=== PATIENT | female | born 1945 | race Caucasian/White ===

== ENCOUNTER → 2018-05-04 | Outpatient (CLI) | payer OTHER ==
[~2018-05-04] MED LIST: AMLO10 PO; AMLO5; ASPI81CH PO; Advil200 M1 PO; BENADRYL25 MG PO; CHOL10002 PO; CITA20 PO; COMBIVENT RESPIM4 GM IH; COMBIVENT RESPIM4 GM INH; EPIN.3I IM; FEXO60; FEXPSEER PO; FISH1000 PO; FLUT220OIA INH; HYDACE5 PO; Hydrochlorothia25 MG PO; ISOMON30 PO; LEVSOD100 PO; LEVSOD125 PO; LEVSOD25; METF500 PO; NAPR500; NEBI10; NEBI10 PO; NITR.6SL SL; OXYACE5T PO; PREG100 PO; PREG75 PO; Pepcid20 MG PO; Prednisone20 MG PO; RALO60; VALS80 PO
== END | disposition home or self-care (01) ==
LOC: LAB SHORT 08:08 → PLD 08:08
DX: L82.1 Other seborrheic keratosis (principal)
CPT/HCPCS: 88305

== ENCOUNTER 2022-02-20 08:44 | Day surgery (SDC) | payer OTHER ==
[~2022-02-20] VITALS: Ht 162.6 cm; Wt 100.7 kg
[~2022-02-20 08:44] MED LIST changes: +ATOR40TA PO; -CHOL10002 PO; +DULO60 PO; +GABA100 PO; +LEVSOD112 PO; -LEVSOD125 PO; +LIOT25 PO; +Norco 5-325 Ta1 EACH PO; +OLMESARTAN-HCT1 EAC5 PO; +OZEMPIC1 MG/0.72; +PROP120ER PO; +VITAMIN B125000 MC1 PO; +VITAMIN D3 PO
--- NOTE | 2022-02-20 12:17 | NUR ---
Ambulatory in Day Surgery. Surgical site prepped with 2% Chlorhexidine cloth wipe. History, Chart, Medications and Allergies reviewed before start of procedure. Lungs clear T/O to Auscultation. Patient confirms NPO status and agrees with scheduled surgery. Pre-Op teaching done. Pt verbalizes understanding. Patient States Post-Procedure ride home has been arranged. Patient reports completing Chlorhexadine shower X2 prior to admission to hospital.
--- NOTE | 2022-02-20 18:08 | NUR ---
DISCHARGED FROM STEP WITH ALL BELONGINGS AND DISCHARGE INSTRUCTIONS. WENT OVER DISCHARGE INSTRUCTIONS WITH PATIENT AND DAUGHTER ESTEFANIA ANSWERED ALL QUESTIONS. ESCORTED OUT IN WHEEL CHAIR WITH RN.
== END 2022-02-20 23:20 | disposition home or self-care (01) ==
LOC: ORSCMMR 08:44 → NM 09:30 → ORSCMMR 09:30
PROVIDERS: Surgery
PROC: 0HBT0ZZ Excision of Right Breast, Open Approach (ICD-10-PCS; principal; 2022-02-20 11:30)
PROC: 07B50ZX Excision of Right Axillary Lymphatic, Open Approach, Diagnostic (ICD-10-PCS; principal; 2022-02-20 11:30)
DX: C50.411 Malignant neoplasm of upper-outer quadrant of right female breast (principal); Z17.0 Estrogen receptor positive status [ER+]; D36.0 Benign neoplasm of lymph nodes; I10 Essential (primary) hypertension; E11.9 Type 2 diabetes mellitus without complications; E03.9 Hypothyroidism, unspecified; Z79.899 Other long term (current) drug therapy; Z79.82 Long term (current) use of aspirin; E66.9 Obesity, unspecified; Z68.38 Body mass index [BMI] 38.0-38.9, adult
CPT/HCPCS: 38792; 82947; 88307; 88341; 88342; A9270; A9520; J0690; J1100; J1885; J2250; J2270; J2405; J2704; J3010; J7120; Q9968

== ENCOUNTER 2022-03-01 07:04 | Day surgery (SDC) | payer OTHER ==
[~2022-03-01] VITALS: Ht 162.6 cm; Wt 101.3 kg
--- NOTE | 2022-03-01 07:46 | NUR ---
PT ADMITTED TO [facility]. AMBULATES WITH WALKER. LUNG SOUNDS CLEAR. AGREES WITH PLANNED SURGERY.
--- NOTE | 2022-03-01 08:18 | NUR ---
ASSUMED CARE, REPORT FROM CRISTAL BABIN.
--- NOTE | 2022-03-01 11:07 | NUR ---
Patient up to Ambulate independently. Gait steady WITH PERSONAL WALKER. Discharge instructions reviewed with patient AND DAUGHTER . Patient verbalizes understanding. Copy given to patient to take home. Discharged via wheelchair to private car for ride home. PERSONAL WALKER WITH PT AT DISCHARGE
== END 2022-03-01 11:03 | disposition home or self-care (01) ==
LOC: ORSCMMR 07:04 → ORD 08:30 → ORSCMMR 11:03
PROVIDERS: Surgery
PROC: 0HBT0ZZ Excision of Right Breast, Open Approach (ICD-10-PCS; principal; 2022-03-01 08:30)
DX: C50.411 Malignant neoplasm of upper-outer quadrant of right female breast (principal); Z17.0 Estrogen receptor positive status [ER+]; I10 Essential (primary) hypertension; E11.9 Type 2 diabetes mellitus without complications; E03.9 Hypothyroidism, unspecified; Z79.84 Long term (current) use of oral hypoglycemic drugs; Z79.899 Other long term (current) drug therapy; Z79.82 Long term (current) use of aspirin
CPT/HCPCS: 82947; 88305; J0690; J1100; J1885; J2250; J2405; J2704; J3010; J7120

== ENCOUNTER 2022-08-29 08:23 | Day surgery (SDC) | payer OTHER ==
[~2022-08-29] VITALS: Ht 162.6 cm; Wt 101.2 kg
[2022-08-29] MEDS ORDERED: OZEMPIC0.25 MG/0. (08:47)
[2022-08-29] MEDS ORDERED: ANASTROZOLE1 M7 PO (08:50)
[2022-08-29 10:18] LABS: Albumin, Blood 3.4 g/dL (3.4-5.0); Albumin/Globulin Ratio 0.8 (0.8-1.8); Bilirubin, Total 0.7 mg/dL (0.1-1.0); Bun/Creatinine Ratio 28.1 (12.0-20.0); Calcium, Blood 9.6 mg/dL (8.5-10.1); Creatinine, Blood 0.89 mg/dL (0.40-1.00); Globulin, Blood 4.2 g/dL (2.2-4.0); Potassium, Blood 3.9 mmol/L (3.5-5.5); Total Protein, Blood 7.6 g/dL (6.4-8.2)
--- NOTE | 2022-08-29 14:04 | NUR ---
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 TWO SMALLER PATCHES NOTED ON LEFT & RIGHT SIDE OF PANNUS, BOTH APPROX 2-3 INCHES IN DIAMETER. PT DENIES KNOWLEDGE OR CAUSE, DENIES ANY ITCHING OR DISCOMFORT. NOT RAISED OR WARM TO TOUCH. PT UP TO RESTROOM VIA W/C, 1 RN ASSIST TO CHAIR. PT C/O SLIGHT DIZZINESS, DOES NOT FEEL STABLE ON FEET. PT ASSISTED WITH TRANSFER FROM CHAIR TO TOILET & BACK. WHILE ON TOILET, TWO ROUND BRUISES NOTED TO RIGHT FLANK, APPROX 3-4 INCHES IN DIAMETER. PT DENIES KNOWLEDGE OF SAID BRUISES, BUT STATES SHE HAS HAD MULTIPLE FALLS IN THE LAST COUPLE WEEKS. BOTH BRUISES VARIOUS SHADES OF PURPLE, WITH SMALL OUTLINING OF GREEN. PT DENIES PAIN OR TENDERNESS. DAUGHTER STATES PT HAD AN UNWITNESSED FALL "A FEW DAYS AGO" AT A [employer]. 4 DRESSING SITES CLEAN, DRY & INTACT. PT AND DAUGHTER SHOWN & PROVIDED WITH DISCHARGE EDUCATION. PT'S DAUGHTER AT BEDSIDE, ASSISTING RN WITH DRESSING CHANGE. EDUCATED BOTH ON IMPORTANCE OF FALL PREVENTION, AND VARIOUS INTERVENTIONS. BOTH VERBALIZE UNDERSTANDING, AND STATE THEY ARE COMFORTABLE WITH DISCHARGING HOME. DAUGHTER CONFIRMS SHE AND BROTHER WILL BE ASSISTING PT AT HOME.
--- NOTE | 2022-08-29 14:36 | NUR ---
Discharge instructions reviewed with patient. Patient verbalizes understanding. Copy given to patient to take home. Discharged via wheelchair to private car for ride home. PT TRANSFERRED FROM WHEELCHAIR TO CAR WITH TWO PERSON ASSIST, THIS RN & [facility], WHO IS FAMILIAR WITH PT.
== END 2022-08-29 13:55 | disposition home or self-care (01) ==
LOC: ORSCMMR 08:23 → ORD 09:00 → ORSCMMR 09:00
PROVIDERS: Anesthesiology; Surgery
PROC: 0FT44ZZ Resection of Gallbladder, Percutaneous Endoscopic Approach (ICD-10-PCS; principal; 2022-08-29 09:30)
DX: K80.10 Calculus of gallbladder with chronic cholecystitis without obstruction (principal); I10 Essential (primary) hypertension; E11.9 Type 2 diabetes mellitus without complications; E78.00 Pure hypercholesterolemia, unspecified; Z79.899 Other long term (current) drug therapy; Z79.84 Long term (current) use of oral hypoglycemic drugs; E66.9 Obesity, unspecified; Z68.38 Body mass index [BMI] 38.0-38.9, adult
CPT/HCPCS: 80053; 82947; 88304; 93005; 93010; A9270; C1729; J0690; J1100; J1885; J2250; J2405; J2704; J2710; J2795; J3010; J7120

== ENCOUNTER → 2023-12-18 | Outpatient (CLI) | payer OTHER ==
[~2023-12-18] MED LIST changes: +ANASTROZOLE1 M7 PO; +OZEMPIC0.25 MG/0.
== END | disposition home or self-care (01) ==
LOC: LAB SHORT 17:09 → LAB 17:09
DX: E11.9 Type 2 diabetes mellitus without complications (principal); R30.0 Dysuria
CPT/HCPCS: 87086

== ENCOUNTER → 2024-03-23 | Outpatient (CLI) | payer OTHER | END | disposition home or self-care (01) | LOC: LAB SHORT 15:45 → LAB 15:45 | DX: E11.9 Type 2 diabetes mellitus without complications (principal); N39.0 Urinary tract infection, site not specified; R30.0 Dysuria | CPT/HCPCS: 87086 ==

== ENCOUNTER 2024-08-06 12:25 | Emergency (ER) | payer OTHER ==
[~2024-08-06] VITALS: Ht 162.6 cm; Wt 99.3 kg
[2024-08-06 12:50] VITALS: BP 140/73
== END 2024-08-06 14:43 | disposition home or self-care (01) ==
LOC: ER 12:25
DX: S02.2XXA Fracture of nasal bones, initial encounter for closed fracture (principal); S01.511A Laceration without foreign body of lip, initial encounter; W18.30XA Fall on same level, unspecified, initial encounter; Z88.8 Allergy status to other drugs, medicaments and biological substances; Z91.041 Radiographic dye allergy status; Z79.899 Other long term (current) drug therapy; Z79.84 Long term (current) use of oral hypoglycemic drugs; Z79.82 Long term (current) use of aspirin; E78.5 Hyperlipidemia, unspecified; E11.9 Type 2 diabetes mellitus without complications; I10 Essential (primary) hypertension
CPT/HCPCS: 70450

== ENCOUNTER → 2024-10-05 | Outpatient (CLI) | payer OTHER ==
[2024-10-05 13:15] LABS: Microalb/Creat Ratio UR, Rand 20.879 mg/g (0.000-30.000)
== END ==
LOC: LAB SHORT 09:46 → LAB 09:46
PROVIDERS: Family Medicine
DX: E11.9 Type 2 diabetes mellitus without complications (principal)
CPT/HCPCS: 82043; 82570

== ENCOUNTER → 2024-12-09 | Outpatient (CLI) | payer OTHER | LOC: LAB SHORT 19:24 → LAB 19:24 | DX: R30.0 Dysuria (principal); R35.0 Frequency of micturition | CPT/HCPCS: 87086 ==

== ENCOUNTER 2025-01-09 04:32 | Emergency (ER) | payer OTHER ==
[~2025-01-09] VITALS: Ht 162.6 cm; Wt 102.1 kg
[2025-01-09] MEDS ORDERED: HYDROcodone 7.5-APAP 325 TAB PO ONE (04:45)
[2025-01-09] MEDS ORDERED: Naproxen 250 MG TAB PO ONE (06:00)
[2025-01-09 06:11] VITALS: BP 155/69
[2025-01-09] MEDS ORDERED: NAPR500 PO (06:20)
== END 2025-01-09 06:11 | disposition home or self-care (01) ==
LOC: ER 04:32
DX: S40.012A Contusion of left shoulder, initial encounter (principal); S16.1XXA Strain of muscle, fascia and tendon at neck level, initial encounter; E78.5 Hyperlipidemia, unspecified; E11.9 Type 2 diabetes mellitus without complications; Z91.041 Radiographic dye allergy status; Z88.5 Allergy status to narcotic agent; Z79.84 Long term (current) use of oral hypoglycemic drugs; Z79.02 Long term (current) use of antithrombotics/antiplatelets; Z79.899 Other long term (current) drug therapy; Z79.82 Long term (current) use of aspirin; W18.30XA Fall on same level, unspecified, initial encounter
CPT/HCPCS: 70450; 72125; 73030; 99284-25; A9270

== ENCOUNTER 2025-01-15 13:02 | Emergency (ER) | payer OTHER ==
[~2025-01-15] VITALS: Ht 162.6 cm; Wt 100.7 kg
[~2025-01-15 13:02] MED LIST changes: +NAPR500 PO
[2025-01-15] MEDS ORDERED: Tranexamic Acid 1000 MG/10 ML 10ML Vial (SDV) TOP ONE (13:50)
[2025-01-15] MEDS ORDERED: Acetaminophen 500 MG Tab PO ONE (15:00)
[2025-01-15] MEDS ORDERED: CeFAZolin Sodium 2,000 MG in NS 100 ML IV ONE (15:30)
[2025-01-15 15:59] LABS: BASOPHILS ABSOLUTE AUTO 0.04 K/mm3 (0.00-0.23); BASOPHILS PERCENT AUTO 0 % (0-2); EOSINOPHILS ABSOLUTE AUTO 0.26 K/mm3 (0.00-0.68); EOSINOPHILS PERCENT AUTO 2 % (0-6); Hematocrit 40.3 % (33.0-51.0); Hemoglobin 13.5 g/dL (11.5-16.0); IMMATURE GRAN ABSOLUTE AUTO 0.07 K/mm3 (0.00-0.10); IMMATURE GRAN PERCENT AUTO 0 % (0-1); LYMPHOCYTES ABSOLUTE AUTO 1.98 K/mm3 (0.84-5.20); LYMPHOCYTES PERCENT AUTO 12 % (21-46); MONOCYTES ABSOLUTE AUTO 1.19 K/mm3 (0.16-1.47); MONOCYTES PERCENT AUTO 7 % (4-13); Mean Corpuscular HGB 31.8 pg (26.0-34.0); Mean Corpuscular HGB Conc 33.5 g/dL (31.5-36.5); Mean Corpuscular Volume 95 fL (80-100); Mean Platelet Volume 9.8 fL (9.1-12.4); NEUTROPHILS ABSOLUTE AUTO 12.78 K/mm3 (1.96-9.15); NEUTROPHILS PERCENT AUTO 78 % (41-73); Platelet Count 378 K/mm3 (150-400); RDW Coefficient Variation 12.9 % (11.7-14.2); RDW Standard Deviation 45.2 fL (35.1-46.3); Red Blood Cell Count 4.24 M/mm3 (3.80-5.20); White Blood Cell Count 16.32 K/mm3 (4.00-11.30)
[2025-01-15 16:26] LABS: Albumin, Blood 3.7 g/dL (3.4-5.0); Albumin/Globulin Ratio 0.9 (0.8-1.8); Bilirubin, Total 0.5 mg/dL (0.1-1.0); Bun/Creatinine Ratio 26.7 (12.0-20.0); Calcium, Blood 9.8 mg/dL (8.5-10.1); Creatinine, Blood 1.05 mg/dL (0.40-1.00); Globulin, Blood 4.2 g/dL (2.2-4.0); Potassium, Blood 4.3 mmol/L (3.5-5.5); Total Protein, Blood 7.9 g/dL (6.4-8.2)
[2025-01-15 16:40] VITALS: BP 145/61
[2025-01-15] MEDS ORDERED: Diphth,Pertuss(Acell),Tet Vac 0.5 ML VIAL IM ONE (16:50)
== END 2025-01-15 17:35 | disposition short-term general hospital (02) ==
LOC: ER 13:02
PROVIDERS: Student in an Organized Health Care Education/Training Program
DX: S02.2XXB Fracture of nasal bones, initial encounter for open fracture (principal); S01.81XA Laceration without foreign body of other part of head, initial encounter; E78.5 Hyperlipidemia, unspecified; E11.9 Type 2 diabetes mellitus without complications; I10 Essential (primary) hypertension; W01.0XXA Fall on same level from slipping, tripping and stumbling without subsequent striking against object, initial encounter; Z79.82 Long term (current) use of aspirin; Z79.84 Long term (current) use of oral hypoglycemic drugs; Z79.899 Other long term (current) drug therapy; Z91.041 Radiographic dye allergy status; Z88.8 Allergy status to other drugs, medicaments and biological substances
CPT/HCPCS: 70450; 70486; 72125; 80053; 85025; 90715; A9270; J0690

== ENCOUNTER 2025-08-15 17:38 | Emergency (ER) | payer OTHER ==
[~2025-08-15] VITALS: Ht 162.6 cm; Wt 90.3 kg
[2025-08-15] MEDS ORDERED: SYNTHROID125 MC1 PO (19:27)
[2025-08-15] MEDS ORDERED: HYDROCODONE-AC1 EA19 PO (19:28)
[2025-08-15] MEDS ORDERED: CARBIDOPA-LEVO1 EA15 PO (19:28)
[2025-08-15] MEDS ORDERED: FentaNYL Citrate 50 MCG/ML 2 ML Injection IV ONE (19:45)
[2025-08-15] MEDS ORDERED: Lidocaine 4% 1 Patch TOP ONE (21:30)
[2025-08-15] MEDS ORDERED: Morphine Sulfate 4 MG/1 ML Injection IV ONE (22:20)
[2025-08-15] MEDS ORDERED: CYCL10 PO (23:12)
[2025-08-15] MEDS ORDERED: LIDOCAINE1 EAC1 TOP (23:12)
[2025-08-15 23:27] VITALS: BP 151/110
== END 2025-08-15 23:37 | disposition home or self-care (01) ==
LOC: ER 17:38
DX: S80.01XA Contusion of right knee, initial encounter (principal); M54.2 Cervicalgia; E78.5 Hyperlipidemia, unspecified; E11.9 Type 2 diabetes mellitus without complications; I10 Essential (primary) hypertension; W18.30XA Fall on same level, unspecified, initial encounter; Z88.8 Allergy status to other drugs, medicaments and biological substances; Z91.048 Other nonmedicinal substance allergy status; Z79.890 Hormone replacement therapy; Z79.899 Other long term (current) drug therapy; Z79.84 Long term (current) use of oral hypoglycemic drugs; Z79.82 Long term (current) use of aspirin
CPT/HCPCS: 70450; 71250; 72125; 73562-RT; 74176; A9270; J2270; J3010

== ENCOUNTER → 2025-10-31 | Outpatient (CLI) | payer OTHER ==
[~2025-10-31] MED LIST changes: +CARBIDOPA-LEVO1 EA15 PO; +CYCL10 PO; +HYDROCODONE-AC1 EA19 PO; +LIDOCAINE1 EAC1 TOP; +SYNTHROID125 MC1 PO
== END ==
LOC: LAB SHORT 17:10 → LAB 17:10
DX: R82.998 Other abnormal findings in urine (principal)
CPT/HCPCS: 87086